=== PATIENT | female | born 1940 ===

== ENCOUNTER 2018-03-31 13:43 | Emergency (ER) | payer MEDICAID ==
[2018-03-31 13:57] VITALS: RESP 18; O2SAT 99
[2018-03-31] MEDS ORDERED: TDAP Vaccine 0.5 mL Syr IM ONE (14:00)
--- NOTE | 2018-03-31 14:01 | ED PDOC ---
Arrival/HPI - General Chief Complaint: Abnormal Skin Integrity Time Seen by Provider: 03/31/18 13:58 Historian: Patient - History of Present Illness Narrative History of Present Illness (Text): 03/31/18 13:58 77 y/o female, pmh including htn, nkda, last tetanus doesn't remember, c/o slipped and fall with headache and scalp laceration x 1 hour. Pt. stated that she was at home, cleaning, slipped and hit the posterior occipital region against the door edge, sustained the laceration, no LOC but has headache, no change in vision, no chest pain/palpitation or shortness of breath prior to the onset of the fall, no neck or back pain, no rib or abdominal pain, no hematuria , no other medical or psychological complaints. Past Medical History - Provider Review Nursing Documentation Reviewed: Yes - Reproductive Menopause: Yes - Cardiac Hx Cardiac Disorders: Yes Hx Hypertension: Yes - Pulmonary Hx Respiratory Disorders: No - Neurological Hx Neurological Disorder: No - HEENT Hx HEENT Disorder: No - Renal Hx Renal Disorder: No - Hematological/Oncological Hx Blood Disorders: No - Integumentary Hx Dermatological Disorder: No - Musculoskeletal/Rheumatological Hx Musculoskeletal Disorders: No - Gastrointestinal Hx Gastrointestinal Disorders: No - Genitourinary/Gynecological Hx Genitourinary Disorders: No - Psychiatric Hx Psychophysiologic Disorder: No Hx Emotional Abuse: No Hx Physical Abuse: No Hx Substance Use: No - Surgical History Hx Hysterectomy: Yes Other/Comment: OVARY REMOVAL 2014 - Anesthesia Hx Anesthesia: Yes Hx Anesthesia Reactions: No Hx Malignant Hyperthermia: No - Suicidal Assessment Feels Threatened In Home Enviroment: No Family/Social History - Physician Review Nursing Documentation Reviewed: Yes Family/Social History: Unknown Family HX Smoking Status: Never Smoked Hx Alcohol Use: No Hx Substance Use: No Allergies/Home Meds Allergies/Adverse Reactions: Allergies No Known Allergies Allergy (Verified 03/31/18 13:57) Home Medications: Home Meds Medication Instructions Recorded Confirmed Losartan [Cozaar] 25 mg PO DAILY 03/31/18 03/31/18 Review of Systems - Review of Systems Constitutional: absent: Fatigue, Fevers Eyes: absent: Vision Changes ENT: absent: Hearing Changes Respiratory: absent: SOB, Cough Cardiovascular: absent: Chest Pain Gastrointestinal: absent: Abdominal Pain, Diarrhea, Nausea, Vomiting Skin: Laceration. absent: Rash, Pruritis, Skin Lesions, Abscess, Ulcer, Cellulitis Neurological: Headache. absent: Dizziness, Focal Weakness, Gait Changes, Speech Changes, Facial Droop, Disequilibrium, Seizure Psychiatric: absent: Anxiety, Depression, Suicidal Ideation Physical Exam Vital Signs Reviewed: Yes Vital Signs Temp Pulse Resp BP Pulse Ox 03/31/18 13:53 98.3 F 81 18 129/56 L 99 03/31/18 13:43 98.3 F 81 18 129/56 L 99 Temperature: Afebrile Pulse: Regular Respiratory Rate: Normal Appearance: Positive for: Well-Appearing, Non-Toxic, Comfortable Pain Distress: Mild Mental Status: Positive for: Alert and Oriented X 3 - Systems Exam Head: Present: Laceration (rt. posterior occipital visible approx. 5cm L shaped intermediate to deep depth laceration with +ttp to palpitation), Other (no facial bony tenderness. ) Pupils: Present: PERRL Extroacular Muscles: Present: EOMI Conjunctiva: Present: Normal Ears: Present: NORMAL TM, Normal Canal. No: Erythema Mouth: Present: Moist Mucous Membranes Pharnyx: Present: Normal. No: ERYTHEMA, EXUDATE, TONSILS ENLARGED Nose (External): Present: Atraumatic. No: Abrasion, Contusion, Laceration, Lesions Nose (Internal): Present: Normal Inspection, No Active Bleeding. No: Rhinorrhea , Septal Deviation, Septal Hematoma, Epistaxis Neck: Present: Normal Range of Motion, Trachea Midline. No: MIDLINE TENDERNESS , Paraspinal Tenderness Respiratory/Chest: Present: Clear to Auscultation, Good Air Exchange. No: Respiratory Distress, Accessory Muscle Use, Wheezes, Tender to Palpation Cardiovascular: Present: Regular Rate and Rhythm, Normal S1, S2. No: Murmurs Abdomen: No: Tenderness, Distention, Peritoneal Signs, Rebound, Guarding Back: Present: Normal Inspection. No: Midline Tenderness, Paraspinal Tenderness Upper Extremity: Present: Normal Inspection, Normal ROM, NORMAL PULSES, Neurovascularly Intact. No: Cyanosis, Edema, Tenderness, Swelling, Deformity Lower Extremity: Present: Normal Inspection, Normal ROM, Neurovascularly Intact , Capillary Refill < 2 s. No: Edema, Tenderness, Swelling, Deformity Neurological: Present: GCS=15, CN II-XII Intact, Speech Normal, Motor Func Grossly Intact, Gait Normal, Memory Normal, Other (no drift) Skin: Present: Warm, Dry, Normal Color. No: Rashes Psychiatric: Present: Alert, Oriented x 3, Normal Insight, Normal Concentration Medical Decision Making ED Course and Treatment: 03/31/18 14:04 Differential: Intracranial bleeding vs. skull fracture vs. laceration vs. contussion. -CT head -Tdap and tylenol -sensation intact, motor 5/5, wound irrigated with normal saline 1000cc, clean with betadine, sterile procedure, 1% lidocaine injected locally 1cc, favian made 11 stapled, 3-0 nylon made 4 sutures, hemostasis obtained, bacitracin and gauze dressing applied, neurovascular intact, sensation intact, motor 5/5, total procedure 20 minutes. 03/31/18 15:58 -CT Head: No acute intracranial hemorrhage. . Suspect minor chronic periventricular white matter ischemic changes. Mild generalized volume loss. No acute calvarial fractures. . There is mild left posterior the temporal occipital scalp contusion/soft tissue swelling associated with a small amount of subcutaneous emphysema consistent with overlying laceration. -Headache resolved with the medication given in the ER -Discharge home with tylenol, bacitracin oinment, ice compression, favian need to be removed by day 7, follow up with your own pmd within 2 days, return to the ER for any new or worsening signs or symptoms. - RAD Interpretation Radiology Orders: 03/31/18 14:00 HEAD W/O CONTRAST [CT] Stat PROCEDURE: CT HEAD WITHOUT CONTRAST. HISTORY: Status post fall with head laceration COMPARISON: No prior study available for comparison TECHNIQUE: Axial computed tomography images were obtained through the head/brain without intravenous contrast. Radiation dose: Total exam DLP = 819.60 mGy-cm. This CT exam was performed using one or more of the following dose reduction techniques: Automated exposure control, adjustment of the mA and/or kV according to patient size, and/or use of iterative reconstruction technique. FINDINGS: HEMORRHAGE: No acute parenchymal, subarachnoid or extra-axial hemorrhage. Hemorrhage. BRAIN: Suspect minimal chronic periventricular white matter ischemic changes. No obvious parenchymal nor extra-axial mass or collection seen on this noncontrast exam. There is a small calcification within the subarachnoid space left frontal operculum region nonspecific. Rule out old posttraumatic or post infectious sequela. Mild generalized volume loss. VENTRICLES: Unremarkable. No hydrocephalus. CALVARIUM: No acute calvarial fractures. . There is mild left posterior the temporal occipital scalp contusion/soft tissue swelling associated with a small amount of subcutaneous emphysema consistent with overlying laceration. Note made of a small approximately 3.7 mm rounded fluid collection within the right parasagittal superior frontal scalp . PARANASAL SINUSES: Unremarkable as visualized. No significant inflammatory changes. MASTOID AIR CELLS: Unremarkable as visualized. No inflammatory changes. OTHER FINDINGS: None. IMPRESSION: No acute intracranial hemorrhage. . Suspect minor chronic periventricular white matter ischemic changes. Mild generalized volume loss. No acute calvarial fractures. . There is mild left posterior the temporal occipital scalp contusion/soft tissue swelling associated with a small amount of subcutaneous emphysema consistent with overlying laceration. 3D Animator: Radiologist - Medication Orders Current Medication Orders: Discontinued Medications Acetaminophen (Tylenol 325mg Tab) 650 mg PO STAT STA Stop: 03/31/18 14:01 Last Admin: 03/31/18 14:19 Dose: 650 mg [facility] Pain/Vitals Document 03/31/18 14:19 SRE (Rec: 03/31/18 14:19 SRE [id number]) Pain Reassessment Is This A Pain ReAssessment? Yes Sleep Is patient sleeping during reassessment? No Presence of Pain Presence of Pain No Tetanus/Reduced Diphtheria/Acell Pertussis (Boostrix Vaccine Inj) 0.5 ml IM .ONCE ONE Stop: 03/31/18 14:01 Last Admin: 03/31/18 14:18 Dose: 0.5 ml [facility] Immunization Data Document 03/31/18 14:18 SRE (Rec: 03/31/18 14:18 SRE [id number]) Immunization Data Vaccine Information Sheet Given Yes Immunization Registry Document 03/31/18 14:18 SRE (Rec: 03/31/18 14:18 SRE [id number]) Immunization Registry Consent Date 09/23/17 - PA / STORE DETECTIVE / Resident Statement MD/DO has reviewed & agrees with the documentation as recorded. Disposition/Present on Arrival - Present on Arrival Any Indicators Present on Arrival: No History of DVT/PE: No History of Uncontrolled Diabetes: No Urinary Catheter: No History of Decub. Ulcer: No History Surgical Site Infection Following: None - Disposition Have Diagnosis and Disposition been Completed?: Yes Diagnosis: Fall, Scalp laceration Disposition: HOME/ ROUTINE Disposition Time: 14:07 Patient Plan: Discharge Patient Problems: Current Active Problems Problem Status Onset Fall Acute Scalp laceration Acute Condition: IMPROVED Additional Instructions: -Discharge home with tylenol, bacitracin oinment, ice compression, favian need to be removed by day 7, follow up with your own pmd within 2 days, return to the ER for any new or worsening signs or symptoms. Prescriptions: Acetaminophen [Pain Relief] 500 mg PO QID PRN #30 tablet PRN Reason: Other Bacitracin Ointment [Bacitracin] 1 appful TOP BID #15 g Referrals: Mary Rao DO [Primary Care Provider] - Follow up with primary Raj Stoddard MD [Staff Provider] - Follow up with primary Forms: WORK NOTE
--- NOTE | 2018-03-31 15:49 | CT ---
PROCEDURE: CT HEAD WITHOUT CONTRAST. HISTORY: Status post fall with head laceration COMPARISON: No prior study available for comparison TECHNIQUE: Axial computed tomography images were obtained through the head/brain without intravenous contrast. Radiation dose: Total exam DLP = 819.60 mGy-cm. This CT exam was performed using one or more of the following dose reduction techniques: Automated exposure control, adjustment of the mA and/or kV according to patient size, and/or use of iterative reconstruction technique. FINDINGS: HEMORRHAGE: No acute parenchymal, subarachnoid or extra-axial hemorrhage. Hemorrhage. BRAIN: Suspect minimal chronic periventricular white matter ischemic changes. No obvious parenchymal nor extra-axial mass or collection seen on this noncontrast exam. There is a small calcification within the subarachnoid space left frontal operculum region nonspecific. Rule out old posttraumatic or post infectious sequela. Mild generalized volume loss. VENTRICLES: Unremarkable. No hydrocephalus. CALVARIUM: No acute calvarial fractures. . There is mild left posterior the temporal occipital scalp contusion/soft tissue swelling associated with a small amount of subcutaneous emphysema consistent with overlying laceration. Note made of a small approximately 3.7 mm rounded fluid collection within the right parasagittal superior frontal scalp . PARANASAL SINUSES: Unremarkable as visualized. No significant inflammatory changes. MASTOID AIR CELLS: Unremarkable as visualized. No inflammatory changes. OTHER FINDINGS: None. IMPRESSION: No acute intracranial hemorrhage. . Suspect minor chronic periventricular white matter ischemic changes. Mild generalized volume loss. No acute calvarial fractures. . There is mild left posterior the temporal occipital scalp contusion/soft tissue swelling associated with a small amount of subcutaneous emphysema consistent with overlying laceration.
[2018-03-31 16:10] VITALS: BP 134/67; PULSE 61; TEMP 98
== END 2018-03-31 16:10 | disposition home or self-care (01) ==
LOC: ED 13:43
DX: S01.01XA Laceration without foreign body of scalp, initial encounter (principal); W01.0XXA Fall on same level from slipping, tripping and stumbling without subsequent striking against object, initial encounter; Y92.9 Unspecified place or not applicable; Z23 Encounter for immunization

== ENCOUNTER 2018-04-07 12:30 | Emergency (ER) | payer MEDICAID ==
[2018-04-07 12:42] VITALS: RESP 18; BMI 25.1
--- NOTE | 2018-04-07 14:00 | ED PDOC ---
Arrival/HPI - General Chief Complaint: Suture/Staple Removal Time Seen by Provider: 04/07/18 13:24 Historian: Patient - History of Present Illness Narrative History of Present Illness (Text): 04/07/18 14:06 77yr old female presents today with suture removal and staple removal. Patient states that she was seen in the emergency room about one week ago after slip and fall sustaining a laceration to the right side of the head. Patient denies headaches dizziness or weakness. Denies chest pain or shortness of breath. Denies fevers or chills. Past Medical History - Provider Review Nursing Documentation Reviewed: Yes - Travel History Have you recently traveled outside [place] w/in the past 3 mons?: No - Infectious Disease Hx of Infectious Diseases: None - Tetanus Immunization Tetanus Immunization: Up to Date - Reproductive Menopause: Yes - Cardiac Hx Cardiac Disorders: Yes Hx Hypertension: Yes - Pulmonary Hx Respiratory Disorders: No - Neurological Hx Neurological Disorder: No - HEENT Hx HEENT Disorder: No - Renal Hx Renal Disorder: No - Hematological/Oncological Hx Blood Disorders: No - Integumentary Hx Dermatological Disorder: No - Musculoskeletal/Rheumatological Hx Musculoskeletal Disorders: No - Gastrointestinal Hx Gastrointestinal Disorders: No - Genitourinary/Gynecological Hx Genitourinary Disorders: No - Psychiatric Hx Psychophysiologic Disorder: No Hx Emotional Abuse: No Hx Physical Abuse: No Hx Substance Use: No - Surgical History Hx Hysterectomy: Yes Other/Comment: OVARY REMOVAL 2014 - Anesthesia Hx Anesthesia: Yes Hx Anesthesia Reactions: No Hx Malignant Hyperthermia: No - Suicidal Assessment Feels Threatened In Home Enviroment: No Family/Social History - Physician Review Nursing Documentation Reviewed: Yes Family/Social History: Unknown Family HX Smoking Status: Never Smoked Hx Alcohol Use: No Hx Substance Use: No Allergies/Home Meds Allergies/Adverse Reactions: Allergies No Known Allergies Allergy (Verified 03/31/18 13:57) Home Medications: Home Meds Medication Instructions Recorded Confirmed Losartan [Cozaar] 25 mg PO DAILY 03/31/18 03/31/18 Review of Systems - Review of Systems Constitutional: absent: Fatigue, Fevers Eyes: absent: Vision Changes Respiratory: absent: SOB, Cough Cardiovascular: absent: Chest Pain, Palpitations Gastrointestinal: absent: Abdominal Pain, Nausea, Vomiting Genitourinary Female: absent: Dysuria Musculoskeletal: absent: Arthralgias, Back Pain, Neck Pain Skin: Laceration Neurological: absent: Headache, Dizziness Psychiatric: absent: Anxiety, Depression Physical Exam Vital Signs Reviewed: Yes Vital Signs Temp Pulse Resp BP Pulse Ox 04/07/18 12:41 98.0 F 74 18 112/73 98 Temperature: Afebrile Blood Pressure: Normal Pulse: Regular Respiratory Rate: Normal Appearance: Positive for: Well-Appearing, Non-Toxic, Comfortable Pain Distress: None Mental Status: Positive for: Alert and Oriented X 3 - Systems Exam Head: Present: Laceration (healing laceration noted to right sided of scalp with 11 favian and [address]; no edema, no erythema; no purulent discharge. no tenderness. ) Mouth: Present: Moist Mucous Membranes Neck: Present: Normal Range of Motion Respiratory/Chest: Present: Clear to Auscultation Cardiovascular: Present: Regular Rate and Rhythm Medical Decision Making ED Course and Treatment: 04/07/18 14:09 Patient is nontoxic well-appearing in no distress. Vital signs are stable. Suture/staple removal: 11 favian removed; 4 sutures removed Wound healing well without signs of infection I advised the patient to keep the wound clean and dry apply bacitracin twice daily and return if symptoms worsen persist or if new symptoms develop Patient verbalizes understanding of discharge instructions and need for immediate followup. all aspects of this case were discussed the attending of record. Impression: Wound check, suture and staple removal Keep the wound clean and dry Apply bacitracin twice daily Follow up with primary care physician within the next 2 days Return immediately if symptoms worsen persist or if new symptoms develop Disposition/Present on Arrival - Present on Arrival Any Indicators Present on Arrival: No History of DVT/PE: No History of Uncontrolled Diabetes: No Urinary Catheter: No History of Decub. Ulcer: No History Surgical Site Infection Following: None - Disposition Have Diagnosis and Disposition been Completed?: Yes Diagnosis: Visit for suture removal, Encounter for removal of favian Disposition: HOME/ ROUTINE Disposition Time: 14:00 Patient Plan: Discharge Patient Problems: Current Active Problems Problem Status Onset Encounter for removal of favian Acute Visit for suture removal Acute Condition: GOOD Discharge Instructions (ExitCare): Stitches Removal, Staple Removal Print Language: ZAMBIAN Additional Instructions: Keep the wound clean and dry Apply bacitracin twice daily Follow up with primary care physician within the next 2 days Return immediately if symptoms worsen persist or if new symptoms develop Referrals: Rao,Mary V, DO [Primary Care Provider] - Follow up with primary Forms: [employer] (Serbian)
[2018-04-07 15:09] VITALS: BP 115/75; PULSE 70; TEMP 98; O2SAT 99
== END 2018-04-07 15:07 | disposition home or self-care (01) ==
LOC: ED 12:30
DX: S01.01XD Laceration without foreign body of scalp, subsequent encounter (principal)

== ENCOUNTER 2018-12-24 13:19 | Emergency (ER) | payer MEDICARE, MEDICAID ==
[2018-12-24 13:36] VITALS: BMI 27.5
[2018-12-24 13:39] VITALS: RESP 18; TEMP 98.7
[2018-12-24] MEDS ORDERED: Lidocaine 1%/Epinephrine 1:100000 30 ml vial IJ ONE (13:39)
--- NOTE | 2018-12-24 13:42 | ED PDOC ---
Arrival/HPI - General Chief Complaint: Abnormal Skin Integrity Time Seen by Provider: 12/24/18 13:21 Historian: Patient - History of Present Illness Narrative History of Present Illness (Text): 12/24/18 13:42 78 year old female, with past medical history of hypertension, thyroid disorder and past surgical history of hysterectomy and oophorectomy, presents to the ED accompanied by granddaughter for evaluation of laceration sustained to right frontal scalp prior to arrival. Patient informs she was reaching something from the cabinet when the cabinet door hit the right side of her head and cutting the right side of her scalp. Patient denies any other head injury or any loss of consciousness at the time. Patient denies any other associated somatic complaints. Patient denies any fevers, chills, headache, dizziness, chest pain, shortness of breath, dyspnea on exertion, cough, abdominal pain, nausea, vomiting, diarrhea, back pain, neck pain, or any other complaints. Patient informs upto date tetanus. No blood thinner usage. Time/Duration: Prior to Arrival Symptom Onset: Gradual Symptom Course: Unchanged Activities at Onset: Light Context: Home Past Medical History - Provider Review Nursing Documentation Reviewed: Yes - Infectious Disease Hx of Infectious Diseases: None - Tetanus Immunization Tetanus Immunization: Up to Date - Reproductive Menopause: Yes - Cardiac Hx Cardiac Disorders: Yes Hx Hypertension: Yes - Pulmonary Hx Respiratory Disorders: No - Neurological Hx Neurological Disorder: No - HEENT Hx HEENT Disorder: No - Renal Hx Renal Disorder: No - Hematological/Oncological Hx Blood Disorders: No - Integumentary Hx Dermatological Disorder: No - Musculoskeletal/Rheumatological Hx Musculoskeletal Disorders: No - Gastrointestinal Hx Gastrointestinal Disorders: No - Genitourinary/Gynecological Hx Genitourinary Disorders: No - Psychiatric Hx Psychophysiologic Disorder: No Hx Emotional Abuse: No Hx Physical Abuse: No Hx Substance Use: No - Surgical History Hx Hysterectomy: Yes Other/Comment: OVARY REMOVAL 2014 - Anesthesia Hx Anesthesia: Yes Hx Anesthesia Reactions: No Hx Malignant Hyperthermia: No - Suicidal Assessment Feels Threatened In Home Enviroment: No Family/Social History - Physician Review Nursing Documentation Reviewed: Yes Family/Social History: Unknown Family HX Smoking Status: Never Smoked Hx Alcohol Use: No Hx Substance Use: No Allergies/Home Meds Allergies/Adverse Reactions: Allergies No Known Allergies Allergy (Verified 03/31/18 13:57) Home Medications: Home Meds Medication Instructions Recorded Confirmed Losartan [Cozaar] 25 mg PO DAILY 03/31/18 03/31/18 Review of Systems - Physician Review All systems were reviewed & negative as marked: Yes - Review of Systems Constitutional: absent: Fatigue, Weight Change, Fevers Eyes: absent: Vision Changes, Photophobia ENT: absent: Hearing Changes, Tinnitus, TMJ Pain Respiratory: absent: SOB, Cough Cardiovascular: absent: Chest Pain, Palpitations, Edema, Calf Pain Gastrointestinal: absent: Abdominal Pain, Diarrhea, Nausea, Vomiting Genitourinary Female: absent: Dysuria, Urine Output Changes Musculoskeletal: absent: Arthralgias, Back Pain, Neck Pain, Joint Swelling Skin: Laceration (Right frontal scalp). absent: Rash, Pruritis, Skin Lesions Neurological: absent: Headache, Dizziness, Focal Weakness, Gait Changes, Speech Changes, Facial Droop, Disequilibrium Psychiatric: absent: Anxiety Physical Exam Vital Signs Reviewed: Yes Vital Signs Temp Pulse Resp Pulse Ox 12/24/18 13:20 98.7 F 62 18 98 Temperature: Afebrile Blood Pressure: Normal Pulse: Regular Respiratory Rate: Normal Appearance: Positive for: Well-Appearing, Non-Toxic, Comfortable Pain Distress: None Mental Status: Positive for: Alert and Oriented X 3 - Systems Exam Head: Present: Normocephalic, Laceration (2 cm laceration noted to right frontal scalp) Pupils: Present: PERRL Extroacular Muscles: Present: EOMI Conjunctiva: Present: Normal Ears: Present: Normal, NORMAL TM, Normal Canal Mouth: Present: Moist Mucous Membranes Pharnyx: Present: Normal. No: ERYTHEMA, EXUDATE Nose (External): Present: Atraumatic. No: Abrasion Nose (Internal): Present: Normal Inspection, No Active Bleeding. No: Septal Hematoma Neck: Present: Normal Range of Motion. No: Meningeal Signs, MIDLINE TENDERNESS, Paraspinal Tenderness Respiratory/Chest: Present: Clear to Auscultation, Good Air Exchange. No: Respiratory Distress, Accessory Muscle Use Cardiovascular: Present: Regular Rate and Rhythm, Normal S1, S2. No: Murmurs Back: Present: Normal Inspection. No: Midline Tenderness, Paraspinal Tenderness Upper Extremity: Present: Normal Inspection, NORMAL PULSES, Neurovascularly Intact. No: Cyanosis, Edema Lower Extremity: Present: Normal Inspection, NORMAL PULSES, Neurovascularly Intact. No: Edema Neurological: Present: GCS=15, CN II-XII Intact, Speech Normal, Motor Func Grossly Intact, Normal Sensory Function, Normal Cerebellar Funct, Gait Normal, Memory Normal Skin: Present: Warm, Dry, Normal Color. No: Rashes Psychiatric: Present: Alert, Oriented x 3, Normal Insight, Normal Concentration Medical Decision Making ED Course and Treatment: 12/24/18 13:51 Impression: 78 year old female presents to the ED for evaluation of laceration sustained to right frontal scalp. No other pain noted per pt. Joints all non-ttp. Full rom to all extremities. Neurovasculary intact in all extremities. Neck clear via Nexus. No blood thinners. Will seek ct to rule out ICH. tetanus UTD. Normal neuro exam. No FND. Differential Diagnosis included but are not limited to: -- Laceration -- Intracranial hemorrhage Plan: -- CT of Head -- Laceration Repair -- Reassess and disposition Prior Visits: Notes and results from previous visits were reviewed. Progress Notes: 12/24/18 15:13 PROCEDURE: LACERATION REPAIR Performed by the emergency provider Location: Right frontal scalp Length: 2 cm Description: clean wound edges, no foreign bodies Distal CMS: Normal. No deficits. Neurovascularly intact. Anesthesia: Lidocaine 1% with Epi Preparation: The wound was cleaned with NS and [place]. The area was prepped and draped in the usual sterile fashion. Exploration: The wound was explored and no foreign bodies were found. Procedure: The wound was closed with 5 favian.. There was good approximation. Post-Procedure: Good closure and hemostasis. The patient tolerated the procedure well and there were no complications. CSM remains intact. Post procedure dressing applied. Good hemostasis neuro exam remains unremarkable clear for d/c home with return indications and followup - RAD Interpretation Radiology Orders: 12/24/18 13:39 HEAD W/O CONTRAST [CT] Stat - Medication Orders Current Medication Orders: Discontinued Medications Lidocaine/Epinephrine (Lidocaine 1%/Epinephrine 1:077193 30 Ml) 30 ml IJ ONCE ONE Stop: 12/24/18 13:40 - Scribe Statement The provider has reviewed the documentation as recorded by the Scribe Arelis Parra. All medical record entries made by the Scribe were at my direction and personally dictated by me. I have reviewed the chart and agree that the record accurately reflects my personal performance of the history, physical exam, medical decision making, and the department course for this patient. I have also personally directed, reviewed, and agree with the discharge instructions and disposition. Disposition/Present on Arrival - Present on Arrival Any Indicators Present on Arrival: No History of DVT/PE: No History of Uncontrolled Diabetes: No Urinary Catheter: No History of Decub. Ulcer: No History Surgical Site Infection Following: None - Disposition Have Diagnosis and Disposition been Completed?: Yes Diagnosis: Laceration of head, Head trauma Disposition: HOME/ ROUTINE Disposition Time: 15:23 Patient Problems: Current Active Problems Problem Status Onset Laceration of head Acute Head trauma Acute Condition: GOOD Discharge Instructions (ExitCare): Closed Head Injury, Laceration Repair With [place] (DC) Additional Instructions: Return in 1 week for staple removal. Return if any other issues. DEO VAZQUEZ, thank you for letting us take care of you today. Your provider was Dez Dozier and you were treated for CUT TO HEAD. The emergency medical care you received today was directed at your acute symptoms. If you were prescribed any medication, please fill it and take as directed. It may take several days for your symptoms to resolve. Return to the Emergency Department if your symptoms worsen, do not improve, or if you have any other problems. Please contact your doctor or call one of the physicians/clinics you have been referred to that are listed on the Patient Visit Information form that is included in your discharge packet. Bring any paperwork you were given at discharge with you along with any medications you are taking to your follow up visit. Our treatment cannot replace ongoing medical care by a primary care provider outside of the emergency department. Thank you for allowing the [facility] team to be part of your care today. If you had an X-Ray or CT scan: A Radiologist will review the ED reading if any change in treatment is needed we will contact you. If you had a blood, urine, or wound culture: It will take several days for the results, if any change in treatment is needed we will contact you. If you had an STI test: It will take 48 hours for the results. Please call after 1 week if you have not heard back. Referrals: Madalyn Ruby MD [Medical Doctor] - Follow up with primary [facility] [place] [Outside] - Follow up with primary [facility] [Outside] - Follow up with primary [facility] [Outside] - Follow up with primary Forms: Linda Mariscal (Yakut)
[2018-12-24 15:52] VITALS: PULSE 64
[2018-12-24 16:01] VITALS: BP 131/69; O2SAT 99
--- NOTE | 2018-12-24 16:03 | CT ---
Date of service: 12/24/2018 PROCEDURE: CT HEAD WITHOUT CONTRAST. HISTORY: Scalp laceration COMPARISON: Comparison made with prior CT scan of the brain 03/31/2018 TECHNIQUE: Axial computed tomography images were obtained through the head/brain without intravenous contrast. Radiation dose: Total exam DLP = 805.46 mGy-cm. This CT exam was performed using one or more of the following dose reduction techniques: Automated exposure control, adjustment of the mA and/or kV according to patient size, and/or use of iterative reconstruction technique. FINDINGS: HEMORRHAGE: No acute parenchymal, subarachnoid or extra-axial hemorrhage. BRAIN: Suspect minor chronic periventricular white matter ischemic changes seen extending peripherally into the deep white matter both cerebral hemispheres. Redemonstrated is a small calcification which appears to be in the subarachnoid space and/or along the cortical surface left frontal operculum region unchanged from prior exam. Moderate generalized volume loss. VENTRICLES: No obstructive hydrocephalus. CALVARIUM: Unremarkable. PARANASAL SINUSES: Unremarkable as visualized. No significant inflammatory changes. MASTOID AIR CELLS: Unremarkable as visualized. No inflammatory changes. OTHER FINDINGS: None. IMPRESSION: No acute intracranial hemorrhage. Suspect minor chronic white matter ischemic changes. Moderate generalized volume loss.
== END 2018-12-24 15:50 | disposition home or self-care (01) ==
LOC: ED 13:19
DX: S01.01XA Laceration without foreign body of scalp, initial encounter (principal); W22.8XXA Striking against or struck by other objects, initial encounter; I10 Essential (primary) hypertension
CPT/HCPCS: 12001; 70450; 99283; J2765

== ENCOUNTER 2019-01-01 09:17 | Emergency (ER) | payer MEDICARE, MEDICAID ==
[2019-01-01 09:17] VITALS: BMI 25.1
[2019-01-01 09:44] VITALS: BP 126/74; PULSE 62; RESP 16; TEMP 98.8; O2SAT 99
--- NOTE | 2019-01-01 10:06 | ED PDOC ---
Arrival/HPI - General Chief Complaint: Suture/Staple Removal Time Seen by Provider: 01/01/19 09:37 Historian: Patient - History of Present Illness Narrative History of Present Illness (Text): 01/01/19 10:04 78-year-old female presents today for staple removal to the right frontal scalp. Per patient's daughter the patient hit her head into the corner of a cabinet 8 days ago sustaining a laceration that was repaired with favian. Patient denies headaches dizziness or weakness. Denies blurred vision. Denies fevers or chills. Denies any pain. Past Medical History - Provider Review Nursing Documentation Reviewed: Yes - Travel History Have you recently traveled outside [place] w/in the past 3 mons?: No - Infectious Disease Hx of Infectious Diseases: None - Tetanus Immunization Tetanus Immunization: Up to Date - Cardiac Hx Cardiac Disorders: Yes Hx Hypertension: Yes - Pulmonary Hx Respiratory Disorders: No - Neurological Hx Neurological Disorder: No - HEENT Hx HEENT Disorder: No - Renal Hx Renal Disorder: No - Hematological/Oncological Hx Blood Disorders: No - Integumentary Hx Dermatological Disorder: No - Musculoskeletal/Rheumatological Hx Musculoskeletal Disorders: No - Gastrointestinal Hx Gastrointestinal Disorders: No - Genitourinary/Gynecological Hx Genitourinary Disorders: No - Psychiatric Hx Psychophysiologic Disorder: No Hx Emotional Abuse: No Hx Physical Abuse: No Hx Substance Use: No - Surgical History Hx Hysterectomy: Yes Other/Comment: OVARY REMOVAL 2014 - Anesthesia Hx Anesthesia: Yes Hx Anesthesia Reactions: No Hx Malignant Hyperthermia: No - Suicidal Assessment Feels Threatened In Home Enviroment: No Family/Social History - Physician Review Nursing Documentation Reviewed: Yes Family/Social History: Unknown Family HX Smoking Status: Never Smoked Hx Alcohol Use: No Hx Substance Use: No Allergies/Home Meds Allergies/Adverse Reactions: Allergies No Known Allergies Allergy (Verified 01/01/19 09:36) Home Medications: Home Meds Medication Instructions Recorded Confirmed Calcium Carbonate [Caltrate] 1 tab PO DAILY 01/01/19 01/01/19 Gabapentin [Neurontin] 300 mg PO DAILY 01/01/19 01/01/19 Levothyroxine [Synthroid] 1 tab PO DAILY 01/01/19 01/01/19 Lisinopril [Zestril] 10 mg PO BID 01/01/19 01/01/19 amLODIPine [Norvasc] 5 mg PO DAILY 01/01/19 01/01/19 Review of Systems - Review of Systems Constitutional: absent: Fatigue, Fevers Respiratory: absent: SOB, Cough Cardiovascular: absent: Chest Pain, Palpitations Gastrointestinal: absent: Abdominal Pain, Nausea, Vomiting Skin: Laceration Neurological: absent: Headache, Dizziness Physical Exam Vital Signs Reviewed: Yes Vital Signs Temp Pulse Resp BP Pulse Ox 01/01/19 09:41 98.8 F 62 16 126/74 99 Temperature: Afebrile Blood Pressure: Normal Pulse: Regular Respiratory Rate: Normal Appearance: Positive for: Well-Appearing, Non-Toxic, Comfortable Pain Distress: None Mental Status: Positive for: Alert and Oriented X 3 - Systems Exam Head: Present: Laceration (healed laceration with [address] to right frontal scalp.) Mouth: Present: Moist Mucous Membranes Neck: Present: Normal Range of Motion Respiratory/Chest: Present: Clear to Auscultation Cardiovascular: Present: Regular Rate and Rhythm Medical Decision Making ED Course and Treatment: 01/01/19 10:06 Patient is nontoxic well-appearing in no distress. Vital signs are stable. [place] removal: 5 favian removed Wound healing well without signs of infection I advised the patient to keep the wound clean and dry. and return if symptoms worsen persist or if new symptoms develop Patient verbalizes understanding of discharge instructions and need for immediate followup. Impression: Wound check, staple removal Keep the wound clean and dry Follow up with primary care physician within the next 2 days Return immediately if symptoms worsen persist or if new symptoms develop Disposition/Present on Arrival - Present on Arrival Any Indicators Present on Arrival: No History of DVT/PE: No History of Uncontrolled Diabetes: No Urinary Catheter: No History of Decub. Ulcer: No History Surgical Site Infection Following: None - Disposition Have Diagnosis and Disposition been Completed?: Yes Diagnosis: Removal of favian Disposition: HOME/ ROUTINE Disposition Time: 10:04 Patient Plan: Discharge Condition: GOOD Discharge Instructions (ExitCare): Staple Removal Print Language: BURKIN[place] Additional Instructions: Keep the wound clean and dry Follow up with primary care physician within the next 2 days Return immediately if symptoms worsen persist or if new symptoms develop Referrals: Madalyn Ruby MD [Medical Doctor] - Follow up with primary [facility] [Outside] - Follow up with primary
== END 2019-01-01 10:20 | disposition home or self-care (01) ==
LOC: ED 09:17
DX: Z48.02 Encounter for removal of sutures (principal)